=== PATIENT | male | born 1990 | race Caucasian/White ===

== ENCOUNTER 2017-10-25 13:00 | Inpatient (IN) | payer BC, OTHER ==
[~2017-10-25] VITALS: Ht 175.3 cm; Wt 90.7 kg
--- NOTE | 2017-10-25 16:00 | NUR ---
PRE-ASSESSMENT: Pre-Assessment done at intake office, client is A/O x4, he presents with anxious mood. Client is wearing clean clothes, he appears nourished. Client avoids eye contact. Rapid speech, he has difficulty staying still, T 98.43, RR 18, HR 81, BP 143/83, spO2 @ 96% on RA, Pain 0/10. He is fully ambulatory. He denies any allergies; he denies any withdrawal-induced seizure. PMH: GERD. Past Surgical hx: R hand surgery (2008). Client denies any suicidal/homicidal ideation at this time and reports no hx of of SI/HI. Medications taken at home Omeprazole 20mg PO daily Substance history First time used oxycodone was at 17 y/o, but started using daily for the past 2 years. Now he is using oxycodone 400-500mg PO, snorted daily for the past 4 weeks, last amount used 300mg PO & snorted 10/25/17 @ 1100 He consumes alcoholic beverages, alprazolam, and ecstasy occasionally, client is a poor historian on these substances, insisting he does not use them daily and amount is really not much. Protocol regarding vitals Q4H, UDS, blood work, and controlled substances discuss with client, he verbalized understanding. Psych: Jayjay Villatoro. Client reports no PCP
[2017-10-25] MEDS ORDERED: OMEP20CA10 PO (16:31)
--- NOTE | 2017-10-25 16:46 | NUR ---
Admissions Note 27 year old male admitted to [facility] for withdrawal from oxycodone. Client stated, "I relapse 4 weeks ago and I need to get a hold of my life." Client is oriented to unit, educated about protocols and how to work TV and call light in his room. Weight: 200 pounds. Height: 5'9" CIWA: 3 Client appears anxious, he has dry, intact skin. Bilateral lung clear on auscultation, abdomen soft, non-tender, no edema noted. Client appears moderate intoxicated upon assessment. Client has steady gait. Client has NKDA, regular diet, full code ordered. Client denies any history of seizures. LBM was 10/25/17, medium/brown/formed. He declines PNA vaccine, stating, "I don't want to feel worst with the side effects." He gives verbal consent for HIV. Client reports living with his girlfriend. He reports no prior treatment. His longest period of sobriety is for 2 months on Jul-Aug of this year. Client stated, the reason why he relapse, "I was stressed out at work, my job is very demanding and I need to be on my best mentally and physically, truth is I can't do that without using oxycodone." Client reports the following symptoms when attempting to be sober, "I feel stressed out, irritable, my body hurts and it feel on fire, I'm not sure how to describe, but it is a bad feeling, oh and I know I would have trouble falling asleep." When asked client how this treatment will be different he stated, "This is my first treatment, and I'm hoping to do my best." Dr Boyce assessed client. Urine was not collected. All safety measures instituted. [place] precaution. Call light within reach. Will continue to monitor.
[2017-10-25] MEDS ORDERED: LOPE1TAB46 PO (17:25)
[2017-10-25] MEDS ORDERED: [UNRECOGNIZED DRUG - OTHER] (17:27)
[2017-10-25] MEDS ORDERED: CLONIDINE HCL 0.1 MG TABLET PO PRN (18:15)
[2017-10-25] MEDS ORDERED: DICYCLOMINE HCL 20 MG TABLET PO PRN (18:15)
[2017-10-25] MEDS ORDERED: ACETAMINOPHEN 325 MG TABLET PO PRN (18:15)
[2017-10-25] MEDS ORDERED: METHOCARBAMOL 750 MG TABLET PO PRN (18:15)
[2017-10-25] MEDS ORDERED: ONDANSETRON 4 MG/2 ML VIAL IM PRN (18:15)
[2017-10-25] MEDS ORDERED: MAGNESIUM HYDROXIDE 30 ML LIQUID UDC PO PRN (18:15)
[2017-10-25] MEDS ORDERED: LOPERAMIDE HCL 2 MG CAPSULE PO PRN ×2 (18:15)
[2017-10-25] MEDS ORDERED: ONDANSETRON ODT 4 MG TAB.RAPDIS SL PRN (18:15)
[2017-10-25] MEDS ORDERED: MAG HYDROX/AL HYDROX/SIMETH 30 ML LIQUID UDC PO PRN (18:15)
[2017-10-25] MEDS ORDERED: LORAZEPAM 1 MG TABLET PO PRN (18:15)
[2017-10-25] MEDS ORDERED: IBUPROFEN 600 MG TABLET PO PRN (18:15)
[2017-10-25] MEDS ORDERED: MIRALAX 17 GM POWD.PACK PO PRN (18:15)
[2017-10-25] MEDS ORDERED: HYDROXYZINE PAMOATE 25 MG CAPSULE PO PRN (18:15)
[2017-10-25 18:43] LABS: BASOPHILS % (AUTO) 0.4 % (0.0-2.0); EOSINOPHILS # (AUTO) 0.6 K/uL (0.0-0.7); EOSINOPHILS % (AUTO) 6.1 % (0.0-7.0); HEMATOCRIT 40.6 % (36.7-47.1); HEMOGLOBIN 14.1 g/dL (12.5-16.3); LYMPHOCYTES # (AUTO) 1.9 K/uL (20.0-40.0); LYMPHOCYTES % (AUTO) 21.3 % (20.5-51.5); MEAN CORPUSCULAR HEMOGLOBIN 31.4 uug (23.8-33.4); MEAN CORPUSCULAR HGB CONC 35 g/dL (32.5-36.3); MEAN CORPUSCULAR VOLUME 90.7 fL (73.0-96.2); MONOCYTES # (AUTO) 0.6 K/uL (2.0-10.0); MONOCYTES % (AUTO) 6.5 % (0.0-11.0); NEUTROPHILS % (AUTO) 65.7 % (38.5-71.5); PLATELET COUNT (AUTO) 261 K/uL (152-348); RED BLOOD CELL COUNT(AUTO) 4.47 MIL/uL (4.06-5.63); WHITE BLOOD COUNT (AUTO) 9.1 K/uL (3.6-10.2)
[2017-10-25 18:43] LABS: *AMPHETAMINE, URINE NEGATIVE (NEGATIVE); *BARBITURATE, URINE NEGATIVE (NEGATIVE); *CANNABINOID, URINE NEGATIVE (NEGATIVE); *COCCAINE, URINE NEGATIVE (NEGATIVE); *OPIATE, URINE POSITIVE (NEGATIVE); *PHENCYCLIDINE SCREEN,URINE NEGATIVE (NEGATIVE)
[2017-10-25 18:58] LABS: ALANINE AMINOTRANSFERASE 36 U/L (16-63); ALKALINE PHOSPHATASE 88 U/L (50-136); ASPARTATE AMINOTRANSFERASE 35 U/L (15-37); BILIRUBIN,TOTAL 0.4 mg/dL (0.2-1.0); CARBON DIOXIDE 29 mmol/L (21-32); CHLORIDE 103 mmol/L (98-107); CREATININE 1.1 mg/dL (0.6-1.3); GLUCOSE 69 mg/dL (74-106); MAGNESIUM 2.1 mg/dL (1.8-2.4); POTASSIUM 3.9 mmol/L (3.5-5.1); TOTAL PROTEIN, SERUM 7.5 g/dL (6.4-8.2); UREA NITROGEN, BLOOD 18 mg/dL (7-18)
--- NOTE | 2017-10-25 19:15 | NUR ---
END OF SHIFT Endorse client to incoming nurse, client is in room, a/o x 4. Client presents with anxiety, he denies any symptoms of withdrawal at this time, but wants to know what medications he can get now. Educated client on precipitated withdrawal symptoms, reinforcement is needed. 1200mL PO fluid intake, void x 1. Call light within reach.
--- NOTE | 2017-10-25 19:15 | NUR ---
Start of Shift Note: Patient is a 27 y.o male admitted today for medically supervised withdrawal from Opiates. Patient is alert & oriented x4. Patient presented with a blunt affect, has anxious/irritable mood, appears with a flushed face, reports chills, stuffy nose & 3/10 generalized body aches. Pt placed on a 5-day Subutex to be started tomorrow. No PRN medications received during day shift. Last COWS 3. Encourage pt to increase fluids as tolerated. Educated patient of current plan of care for the night and medication regimen. Safety precaution in place. Bed locked in lowest position. Both side rails up. Call light within pt's reach. Will continue to monitor patient.
[2017-10-25 19:35] LABS: ETHANOL < 3 MG/DL (0-0)
[2017-10-25 20:00] VITALS: BP 105/68
[2017-10-25] MEDS: diphenhydrAMINE 50 MG CAPSULE PO PRN (20:48)
--- NOTE | 2017-10-25 20:48 | NUR ---
PRN Ativan & Benadryl Pt noted with increase restlessness, anxiety & agitation, he reports chills, generalized body aches, stomach cramps & stuffy nose. PRN Ativan 2mg for anxiety & agitation & Benadryl for sleep administered as ordered. Will monitor for effectiveness of medication.
[2017-10-25] MEDS ORDERED: BUPRENORPHINE HCL 2 MG TAB.SUBL SL PRN (21:00)
--- NOTE | 2017-10-25 21:48 | NUR ---
PRN Reassessment Patient in bed and verbalized decreased in anxiety & agitation. PRN medication effective in relieving some symptoms of withdrawal. Pt in bed and appears comfortable. Safety measures in place. Will continue to monitor patient.
[2017-10-26] VITALS (7 sets, daily range): BP systolic 102–147; BP diastolic 47–80
--- NOTE | 2017-10-26 07:07 | NUR ---
End of Shift Note: Patient is a 27 y.o male admitted for medically supervised withdrawal from Opiates. Patient is alert & oriented x4. Patient presented with a blunt affect, anxiety, agitation, chills, stuffy nose & generalized body aches. Pt will be started on a Subutex taper today. Pt received PRN Ativan 2mg for anxiety & agitation & Benadryl for slee. Medications were effective. Last COWS 7. Continue to closely monitor pt for s/s of withdrawal. Vitals were noted WNL. Pt was encouraged to increased fluid intake as tolerated. Pt slept for a total of 8 hours. Fluid intake: 500 ml, Voided 1x with no bowel movement All needs attended & met. Safety measures in place. Will endorse pt to day shift nurse.
--- NOTE | 2017-10-26 07:50 | NUR ---
START OF SHIFT: RECEIVED PT A/O X 4 LAYING IN BED. HIS LEGS ARE FIDGETING AND HIS SKIN IS MOIST WITH SWEAT AROUND HAIRLINE. PILOERECTION TO ARMS NOTED. PUPILS MODERATELY DILATED. HE C/O BODY ACHES,CHILLS,SWEATS,ANXIETY,RESTLESSNESS,RUNNY NOSE,WATERY EYES AND YAWNS. COWS 19 PRN SUBUTEX 4MG SL ADMINISTERED TO MANAGE S/S OF W/D. ENCOURAGED PT TO INCREASE FLUID INTAKE AFTER MEDICINE DISSOLVES. WILL CONTINUE TO MONITOR AND MANAGE S/S OF W/D.
--- NOTE | 2017-10-26 08:20 | NUR ---
PRN SUBUTEX EFFECTIVE. COWS NOW 13. WILL CONTINUE TO MONITOR AND MANAGE S/S OF W/D.
[2017-10-26] MEDS ORDERED: TUBERCULIN,PURIF.PROT.DERIV. 5 TU/0.1 ML TEST ID ONE (09:00)
[2017-10-26] MEDS: BUPRENORPHINE HCL 2 MG TAB.SUBL SL SCH ×3 (10:00→22:01)
[2017-10-26] MEDS: OMEPRAZOLE 20MG PO PRN (10:11)
--- NOTE | 2017-10-26 18:30 | NUR ---
END OF SHIFT: PT STARTED SUBUTEX TAPER THIS AM TO MANAGE S/S OF W/D WHICH INCLUDE SWEATS,CHILLS,RESTLESSNESS,BODY ACHES,RUNNY NOSE AND ANXIETY. PRN SUBUTEX GIVEN EARLY THIS AM FOR COWS 19 AND EFFECTIVE. PT'S TOLERATING SUBUTEX WELL. LAST COWS 11. HE ATTENDED GROUP AND INTERACTED WITH PEERS. PT WAS COMPLIANT WITH INCREASED FLUIDS. WILL PASS SHIFT REPORT TO ONCOMING TO NIGHT NURSE.
--- NOTE | 2017-10-26 19:15 | NUR ---
Start of Shift Note: Patient is a 27 y.o male admitted today for medically supervised withdrawal from Opiates. Patient is alert & oriented x4. Patient is ambulatory with a steady gait. Patient presented with a flat affect, has anxious/irritable mood & restlessness. Pt presented with a flushed face, reports chills, moist/clammy skin, constantly stuffy nose, 3/10 generalized body aches & abdominal cramps. Pt started on a 5-day Subutex today and tolerating well with no adverse reactions noted. PRN Subutex was administered during day shift. Last . Encourage pt to increase fluids as tolerated. Educated patient of current plan of care for the night and medication regimen. Safety precaution in place. Bed locked in lowest position. Both side rails up. Call light within pt's reach. Will continue to monitor patient.
[2017-10-26] MEDS ORDERED: LORAZEPAM 1 MG TABLET PO ONE (19:30)
[2017-10-26] MEDS ORDERED: BUPRENORPHINE HCL 2 MG TAB.SUBL SL ONE (19:30)
--- NOTE | 2017-10-26 19:44 | NUR ---
Patient presented with anxiety, agitation, chills, 3/10 body aches, stomach cramps & mild headache. COWS 8 CIWA 10. New orders to give one time Subutex 2mg and Ativan 1mg. Orders noted and carried out. Will continue to monitor patient.
--- NOTE | 2017-10-26 20:44 | NUR ---
Patient noted with decrease in anxiety & agitation at this time. Patient noted ambulating in the hallway, no distress noted. no facial grimacing noted. Safety measures in place. Will continue to monitor patient.
[2017-10-26] MEDS ORDERED: LORAZEPAM 1 MG TABLET PO SCH (21:00)
[2017-10-26] MEDS: CLONIDINE HCL 0.1 MG TABLET PO SCH (22:00)
[2017-10-26] MEDS: GABAPENTIN 300 MG CAPSULE PO SCH (22:00)
--- NOTE | 2017-10-27 07:08 | NUR ---
End of Shift Note: Patient monitored closely during shift. Patient remains alert & oriented x4. Patient presented with a flat affect, anxiety, agitation, reports chills, moist/clammy skin, constantly stuffy nose, 3/10 generalized body aches & abdominal cramps. Pt continues on a Subutex taper and tolerated well. Initial COWS 11. Pt received additional doses of Subutex and Ativan last night and were effective. Last COWS 8. No PRN medications received during my shift. Continue to closely monitor pt for s/s of withdrawal. Vitals were noted WNL. Patient encouraged participation in therapy sessions. Non pharmacological intervention utilized. Encourage pt to increase fluid intake as tolerated. Pt slept for a total of 5 hours. Fluid intake: 500 ml, Voided 1x with no bowel movement. All needs attended & met. Safety measures in place. Will endorse pt to day shift nurse.
[2017-10-27 08:00] VITALS: BP 105/63
--- NOTE | 2017-10-27 08:05 | NUR ---
START OF SHIFT: RECEIVED PT A/O X 4 HE C/O BODY ACHES,SWEATS,ANXIETY,STUFFY NOSE AND RESTLESSNESS. HE STATES HE SLEPT WELL LAST NIGHT. COWS 9 ENCOURAGED INCREASED FLUIDS TO ASSIST IN FACILITATING DETOX PROCESS. ENCOURAGED GROUP ATTENDANCE TO IMPROVE COPING SKILLS AND PREVENT RELAPSE. WILL CONTINUE TO MONITOR AND MANAGE S/S OF W/D.
[2017-10-27] MEDS: OMEPRAZOLE 20MG PO PRN (08:47)
[2017-10-27] MEDS: CLONIDINE HCL 0.1 MG TABLET PO SCH ×3 (08:49→21:18)
[2017-10-27] MEDS: GABAPENTIN 300 MG CAPSULE PO SCH ×3 (08:49→21:19)
[2017-10-27] MEDS ORDERED: BUPRENORPHINE HCL 2 MG TAB.SUBL SL SCH (09:00)
[2017-10-27 12:00] VITALS: BP 100/62
[2017-10-27] MEDS: BUPRENORPHINE HCL 2 MG TAB.SUBL SL SCH ×2 (14:04→21:19)
[2017-10-27 16:00] VITALS: BP 129/64
--- NOTE | 2017-10-27 18:58 | NUR ---
END OF SHIFT: PT CONTINUES ON SUBUTEX TAPER TO MANAGE S/S OF W/D WHICH INCLUDE SWEATS,RESTLESSNESS,BODY ACHES,STUFFY NOSE AND ANXIETY. HE STATES THE SUBUTEX IS EFFECTIVE. LAST COWS 7. HE ATTENDED GROUPS AND INTERACTED WITH PEERS. HE WAS ALSO COMPLIANT WITH INCREASED FLUIDS. [facility].
--- NOTE | 2017-10-27 19:15 | NUR ---
START OF SHIFT Patient is a 27-year-old male admitted on 10/25/17 for opiate withdrawal. Patient is currently on a 5-day Subutex taper, tolerating well. Patients last COWS was 7 per day shift. Patient received PRN Prilosec this morning for symptoms of GERD; noted as effective. Upon assessment, patient is alert and oriented x4, complaining of a runny/stuffy nose. Patient appears diaphoretic and disheveled. Patient complains of legs aching bilaterally, 5/10. Patient is on fall precautions, no history of seizures. Safety measures in place, side rails up x2, bed locked in low position, call light within reach. Will continue to monitor.
[2017-10-27 20:00] VITALS: BP 125/69
[2017-10-27] MEDS: BACLOFEN 10 MG TABLET PO SCH (21:18)
[2017-10-27] MEDS: diphenhydrAMINE 50 MG CAPSULE PO PRN (21:19)
--- NOTE | 2017-10-27 21:19 | NUR ---
PRN BENADRYL Patient reports difficulty sleeping. PRN Benadryl 50mg given PO. Safety measures in place, call light within reach. Will monitor for effectiveness.
--- NOTE | 2017-10-27 22:19 | NUR ---
PRN BENADRYL REASSESSMENT Patient reports feeling sleepy and states "I'll go to bed soon." PRN Benadryl effective. Safety measures in place, side rails up x2, bed locked in low position, call light within reach. Will continue to monitor.
--- NOTE | 2017-10-28 | NUR ---
VITALS REFUSED, COWS DEFERRED Patient refused midnight vitals. COWS deferred at this time due to patient sleeping; to be assessed and scored while patient is awake. Respirations even and unlabored, 16/min. Safety measures in place, side rails up x2, bed locked in low position, call light within reach. Will continue to monitor.
--- NOTE | 2017-10-28 04:00 | NUR ---
VITALS REFUSED, COWS DEFERRED Patient refused 4AM vitals. COWS deferred at this time due to patient sleeping. Respirations even and unlabored, 16/min. Safety measures in place, side rails up x2, bed locked in low position, call light within reach. Will continue to monitor.
--- NOTE | 2017-10-28 07:00 | NUR ---
END OF SHIFT Patient is a 27-year-old male admitted on 10/25/17 for opiate withdrawal. Patient is currently on a 5-day Subutex taper, tolerating well. Patients last COWS was 5. Patient received PRN Benadryl 50mg PO; noted as effective. Patient has complained of stuffy nose, MD notified, will endorse to day shift to follow-up. Patient slept for 6 hours, total intake of 1,355mL, void x2, stool x0. Patient is on fall precautions, no history of seizures. Safety measures in place, side rails up x2, bed locked in low position, call light within reach. Will endorse to day shift.
--- NOTE | 2017-10-28 07:30 | NUR ---
START OF SHIFT Received report from night auditor nurse. Pt is lying in bed resting and easily arousable. He is a 27 yo male admitted to [facility] on 10/25 for opioid withdrawal. Pt is A&O and ambulatory. He continues on a 5 day Subutex taper . Pt has moist skin and facial flushing. He slept for 6 hours last night after receiving PRN Benadryl. Safety measures in place.
[2017-10-28 08:00] VITALS: BP 123/60
[2017-10-28] MEDS: CLONIDINE HCL 0.1 MG TABLET PO SCH ×3 (09:34→20:47)
[2017-10-28] MEDS: BUPRENORPHINE HCL 2 MG TAB.SUBL SL SCH ×3 (09:34→20:48)
[2017-10-28] MEDS: GABAPENTIN 300 MG CAPSULE PO SCH ×3 (09:34→20:47)
[2017-10-28] MEDS: BACLOFEN 10 MG TABLET PO SCH ×3 (09:34→20:46)
[2017-10-28] MEDS: OMEPRAZOLE 20MG PO PRN (09:34)
--- NOTE | 2017-10-28 09:35 | NUR ---
PRN Omeprazole Pt reports dyspepsia. PRN Omeprazole administered.
--- NOTE | 2017-10-28 10:35 | NUR ---
PRN Omeprazole reassessment PRN Omeprazole effective. Pt denies GI discomfort.
[2017-10-28] MEDS ORDERED: KETOROLAC TROMETHAMINE 30 MG INJ IM PRN (10:45)
[2017-10-28 12:00] VITALS: BP 122/66
--- NOTE | 2017-10-28 13:55 | NUR ---
Client was prompted to attend group counseling sessions and client agreed to do so.
[2017-10-28] MEDS: DICYCLOMINE HCL 20 MG TABLET PO SCH ×2 (14:17→20:47)
--- NOTE | 2017-10-28 15:05 | NUR ---
RECEIVED CARE Received care from primary nurse, all pertinent information discussed.
[2017-10-28 16:00] VITALS: BP 127/77
[2017-10-28 17:08] LABS: HEPATITIS B SURFACE AG Negative (Negative)
--- NOTE | 2017-10-28 19:11 | NUR ---
END OF SHIFT NOTE Gave report to night nurse, Patient admitted for Oxycodone withdrawal and cont with Subutex taper tolerating well. During shift patient received PRN from his primary nurse omeprazole noted to be effective. Vital signs WNL. Patient remain compliant with diet. Patient attended groups and activities. Patient consumed 100% of his meals. Patient is compliant with treatment plan and medications. All safety measures in place. Patient endorsed to night nurse in stable condition.
[2017-10-28 20:00] VITALS: BP 126/75
--- NOTE | 2017-10-28 20:00 | NUR ---
START OF SHIFT NOTE RECEIVED REPORT FROM DAY SHIFT NURSE. PATIENT IS A 27 YEAR OLD MALE ADMITTED FOR OPIATE WITHDRAWAL. PATIENT IS 3RD DAY OF HIS 5 DAY SUBUTEX TAPER. PATIENT WAS GIVEN PRN OMEPRAZOLE . LAST COWS 5 . PATIENT PRESENTS WITH FLAT AFFECT, GUARDED, RESTRICTED, BLUNTED, ANXIETY, IRRITABLE, ABDOMINAL CRAMPING, FLUSHED FACE , SWEATING, CHILLS AND INSOMNIA. PATIENTS ROOM DIRTY , CLOTHES THROWN ON FLOOR AND GARBAGE AROUND ROOM. ENCOURAGED FLUIDS. SAFETY MEASURES IN PLACE. CALL LIGHT IN REACH. WILL CONTINUE TO MONITOR.
[2017-10-28] MEDS ORDERED: LORAZEPAM 1 MG TABLET PO SCH (21:00)
[2017-10-28] MEDS: diphenhydrAMINE 50 MG CAPSULE PO PRN (22:09)
--- NOTE | 2017-10-28 22:09 | NUR ---
PRN BENADRYL ADMINISTRATION PATIENT REQUESTS FOR SLEEP AID. WILL MONITOR FOR EFFECTIVENESS
--- NOTE | 2017-10-29 | NUR ---
PRN BENADRYL/COWS DEFERRED PATIENT SLEEPING. RESPIRATION EVEN AND UNLABORED. VS REFUSED. SAFETY MEASURES IN PLACE. CALL LIGHT IN REACH. WILL CONTINUE TO MONITOR.
--- NOTE | 2017-10-29 04:00 | NUR ---
COWS DEFERRED PATIENT SLEEPING. RESPIRATION EVEN AND UNLABORED. VS REFUSED. SAFETY MEASURES IN PLACE. CALL LIGHT IN REACH. WILL CONTINUE TO MONITOR.
--- NOTE | 2017-10-29 07:11 | NUR ---
END OF SHIFT NOTE PATIENT SLEPT 6 HOURS. FLUID INTAKE 1,547 ML. VOIDED X 5. BM X 2. MONITORED PATIENT THROUGHOUT SHIFT. TAPER AND SCHEDULED MEDICATION GIVEN , TOLERATED WELL AND NO ADVERSE REACTION. PATIENT PRESENTED WITH FLAT AFFECT, GUARDED, RESTRICTED, BLUNTED, ANXIETY, IRRITABLE, ABDOMINAL CRAMPING, FLUSHED FACE , SWEATING, CHILLS AND INSOMNIA BEGINNING OF SHIFT. PRN BENADRYL GIVEN FOR SLEEP AID. SAFETY MEASURES IN PLACE. CALL LIGHT IN REACH. WILL CONTINUE TO MONITOR. LAST COWS 8.
--- NOTE | 2017-10-29 07:20 | NUR ---
START OF SHIFT NOTE Received report from night nurse, 89 year old male admitted for Opioid withdrawal and cont with Subutex taper tolerating well. Per endorsement patient received PRN Benadryl effective per night nurse. Patient received asleep responsive to verbal and tactile stimuli. Breathing normal no SOB noted. Skin intact warm and dry to touch. All safety measures in place. Will cont to monitor.
[2017-10-29 08:00] VITALS: BP 102/60
[2017-10-29] MEDS: DICYCLOMINE HCL 20 MG TABLET PO SCH ×3 (09:14→20:38)
[2017-10-29] MEDS: BUPRENORPHINE HCL 2 MG TAB.SUBL SL SCH ×2 (09:15→20:39)
[2017-10-29] MEDS: BACLOFEN 10 MG TABLET PO SCH ×3 (09:15→20:38)
[2017-10-29] MEDS: GABAPENTIN 300 MG CAPSULE PO SCH ×3 (09:15→20:38)
[2017-10-29] MEDS: CLONIDINE HCL 0.1 MG TABLET PO SCH ×3 (09:16→20:38)
[2017-10-29] MEDS: OMEPRAZOLE 20MG PO PRN ×2 (09:30→19:21)
--- NOTE | 2017-10-29 09:30 | NUR ---
PRN OMEPRAZOLE Patient is c/o of heart burn, PRN Omeprazole administered as ordered.
--- NOTE | 2017-10-29 10:30 | NUR ---
OMEPRAZOLE REASSESSMENT Per patient medication was effective, heart burn decreased.
[2017-10-29 12:00] VITALS: BP 116/59
[2017-10-29 16:00] VITALS: BP 102/68
--- NOTE | 2017-10-29 16:48 | NUR ---
Client was prompted to attend twice daily group counseling sessions and client agreed to do so.
--- NOTE | 2017-10-29 19:18 | NUR ---
END OF SHIFT NOTE Gave report to night nurse, patient admitted for Oxycodone withdrawal and cont with Subutex taper tolerating well. Patient presented with anxiety, agitation and heart burn. During shift patient received PRN Omeprazole for heart burn noted to be effective. Vital signs WNL. Patient attended groups and activities. Patient consumed 100% of his meals. Patient is compliant with treatment plan and medications. All safety measures in place. Patient endorsed to night nurse in stable condition.
[2017-10-29 20:00] VITALS: BP 113/63
--- NOTE | 2017-10-29 20:00 | NUR ---
START OF SHIFT NOTE RECEIVED REPORT FROM DAY SHIFT NURSE. PATIENT IS A 27 YEAR OLD MALE ADMITTED FOR OXYCODONE WITHDRAWAL. PATIENT IS ON 4TH DAY OF HIS 5 DAY SUBUTEX TAPER. PATIENT WAS GIVEN PRN OMEPRAZOLE FOR HEARTBURN. LAST COWS 7. PATIENT PRESENTS WITH ANXIETY, RESTLESS, SWEATING, PILOERECTION OF SKIN, TREMORS FELT AND STUFFY NOSE. SAFETY MEASURES IN PLACE. CALL LIGHT IN REACH. WILL CONTINUE TO MONITOR
[2017-10-29] MEDS: diphenhydrAMINE 50 MG CAPSULE PO PRN (23:29)
--- NOTE | 2017-10-29 23:29 | NUR ---
PRN BENADRYL ADMINISTRATION PATIENT REQUESTS FOR SLEEP AID. WILL MONITOR FOR EFFECTIVENESS
--- NOTE | 2017-10-30 | NUR ---
COWS AND CIWA DEFERRED PATIENT IN BED WITH EYES CLOSED. RESPIRATION EVEN AND UNLABORED. VS REFUSED. WILL CONTINUE TO MONITOR Addendum: 10/30/17 at 0651 by PETER TORIBIO LVN ERROR: PATIENT IS NOT ON CIWA ASSESSMENT Addendum: 10/30/17 at 0652 by PETER TORIBIO LVN BENADRYL RE-ASSESSED AT THIS TIME - EFFECTIVE
--- NOTE | 2017-10-30 04:00 | NUR ---
COWS DEFERRED PATIENT IN BED WITH EYES CLOSED. RESPIRATION EVEN AND UNLABORED. VS REFUSED. WILL CONTINUE TO MONITOR
--- NOTE | 2017-10-30 07:11 | NUR ---
END OF SHIFT NOTE PATIENT SLEPT 6 HOURS. FLUID INTAKE 500 ML. VOIDED X 1. NO BM. MONITORED PATIENT THROUGHOUT SHIFT. PATIENT PRESENTED WITH ANXIETY, RESTLESS, SWEATING, PILOERECTION OF SKIN, TREMORS FELT AND STUFFY NOSE BEGINNING SHIFT. PATIENT CONTINUE ON SUBUTEX TAPER, TOLERATED WELL AND NO ADVERSE REACTION. PATIENT ATTENDED GROUPS. PATIENT REQUESTED FOR SLEEP AID. PRN BENADRYL GIVEN AT 2329. SAFETY MEASURES IN PLACE. CALL LIGHT IN REACH. WILL CONTINUE TO MONITOR. LAST COWS 8.
--- NOTE | 2017-10-30 07:30 | NUR ---
Start of Shift Note Pt. is a 27 y/o male admitted for the medically supervised withdrawal of oxycodone. Pt. is on a 5 day subutex taper per MD order. Received pt. in room laying in bed with eyes closed. No signs or symptoms of S.O.B noted. Pt. arousable to name and touch. Pt.s room is cluttered with personal belongings. Endorsed pt.s behavior during PM shift was restless with diaphoresis and anxiety. PRN Benadryl was given during pm shift for insomnia. Last COWs was 8. Will attend to pt.s needs. Will encourage pt. to maintain a clean and hygienic personal space. Will provide pt. with a safe and structured environment. Will continue to monitor pt.s behavior for safety.
[2017-10-30] MEDS: CLONIDINE HCL 0.1 MG TABLET PO SCH ×3 (08:53→20:19)
[2017-10-30] MEDS: GABAPENTIN 300 MG CAPSULE PO SCH ×3 (08:53→20:19)
[2017-10-30] MEDS: DICYCLOMINE HCL 20 MG TABLET PO SCH ×3 (08:53→20:19)
[2017-10-30] MEDS: BACLOFEN 10 MG TABLET PO SCH ×3 (08:53→20:19)
[2017-10-30 08:58] VITALS: BP 115/66
[2017-10-30] MEDS ORDERED: BUPRENORPHINE HCL 2 MG TAB.SUBL SL SCH (09:00)
[2017-10-30] MEDS: OMEPRAZOLE 20MG PO PRN (09:26)
--- NOTE | 2017-10-30 09:37 | NUR ---
PRN Medication Pt. given PRN Omeprazole for complaints of dyspepsia. Pt. states "I've been taking this medication every morning for the past 10 years.' Will continue to monitor pt. for medication effectiveness.
--- NOTE | 2017-10-30 10:37 | NUR ---
PRN Re-Assessment Pt. reports medication working as intended. Will continue to monitor pt.'s behavior for safety.
[2017-10-30] MEDS ORDERED: HYDR-3895 PO (11:26)
[2017-10-30] MEDS ORDERED: GABA-534 PO ×2 (11:26)
[2017-10-30] MEDS ORDERED: DICY20TA28 PO (11:26)
[2017-10-30] MEDS ORDERED: IBUP-1955 PO (11:26)
[2017-10-30] MEDS ORDERED: DIPH50CA37 PO (11:26)
[2017-10-30] MEDS ORDERED: CLON0.1T14 PO (11:26)
[2017-10-30] MEDS ORDERED: METH-406 PO (11:26)
[2017-10-30 12:30] VITALS: BP 115/72
[2017-10-30 16:00] VITALS: BP 122/71
--- NOTE | 2017-10-30 19:00 | NUR ---
Start of Shift Patient Received. Patient is in the activities room participating in a group meeting. Per endorsement, patient has completed a 5 day Subutex taper and is set for discharge tomorrow to [facility]. Patient has been noted to verbalize increase anxiety and restlessness but routine medications have been helpful with minimizing symptoms. No PRN medications administered. Last noted COWS 7. All needs attended to promptly. Will continue plan of care as ordered.
--- NOTE | 2017-10-30 19:15 | NUR ---
End of Shift Note Pt. is a 27 y/o male admitted for the medically supervised withdrawal of oxycodone. Pt. is on a 5 day subutex taper per MD order. Pt. completed the last dose of his taper today. No signs or symptoms of S.O.B noted. Pt. has been calm and cooperative throughout shift. Pt. has verbalized feelings of anxiety throughout the shift but states its nothing I cant handle Pt.s room is cluttered with personal belongings. No PRNs given during this shift. Last COWs was 7. Encouraged pt. to maintain a clean and hygienic personal space. Will provide pt. with a safe and structured environment. Pt. had 2000 mls of PO intake, voided x 4 and had 1 BM Will endorse pt.s care to oncoming shift.
[2017-10-30 20:10] VITALS: BP 111/63
[2017-10-30] MEDS: diphenhydrAMINE 50 MG CAPSULE PO PRN (22:26)
--- NOTE | 2017-10-30 22:27 | NUR ---
PRN Medication Administration Patient is noted verbalizing increased anxiety and inability of falling asleep. PRN Vistaril and Benadryl administered. Will continue to monitor.
--- NOTE | 2017-10-30 23:30 | NUR ---
PRN Medication Reassessment Patient is noted in bed sleeping. breathing even and non labored. Patient was given PRN Benadryl and Vistaril for increased anxiety and inability of falling asleep with medication noted to be effective. Will continue to monitor.
--- NOTE | 2017-10-31 00:20 | NUR ---
Vitals Refused Patient is noted in bed sleeping. Breathing even and non labored. Vitals refused. Respirations noted to be 16. COWS not able to be completed as per order. Will continue to monitor. Addendum: 10/31/17 at 0127 by ALLISON MOMIN LVN Amended: Links added.
--- NOTE | 2017-10-31 04:10 | NUR ---
Vitals Patient is noted in bed sleeping. breathing even and non labored. patient refused vitals. respirations noted to be 16. COWS not able to be completed as per order. Will continue to monitor. Addendum: 10/31/17 at 0551 by ALLISON MOMIN LVN Amended: Links added.
--- NOTE | 2017-10-31 07:06 | NUR ---
End of Shift Patient is in bed sleeping. Breathing even and non labored. Patient completed a 5 day Subutex taper and is set for discharge today 10/31/17 to [facility]. Patient verbalized increased anxiety and restless legs and was given his routine medications with medications noted to be effective. Patient received PRN Vistaril and Benadryl for increased anxiety and inability of falling asleep with medications noted to be effective. Patient noted to sleep a total of 6 hours. Last noted COWS 8. All needs attended to promptly. Will endorse to continue plan of care as ordered.
--- NOTE | 2017-10-31 07:41 | NUR ---
START OF SHIFT Rcvd endorse from ongoing nurse, client is in room, a/o x 4, he presents with depressed mood, flat affect. He reports feeling anxious, restless legs, and fatigue. Client is schedule for discharge this am to [facility] for continuity of his treatment. Client completed 5 day Subutex taper. Last COWS 8 @ 1999. PRN Vistaril 50mg for anxiety, Benadryl 50mg for inability to sleep, he slept 6 hrs. [place] precaution rendered. Call light within reach.
[2017-10-31 08:08] VITALS: BP 118/71
[2017-10-31 08:23] VITALS: BP 118/71
[2017-10-31] MEDS: GABAPENTIN 300 MG CAPSULE PO SCH (08:23)
[2017-10-31] MEDS: DICYCLOMINE HCL 20 MG TABLET PO SCH (08:23)
[2017-10-31] MEDS: CLONIDINE HCL 0.1 MG TABLET PO SCH (08:23)
[2017-10-31] MEDS: BACLOFEN 10 MG TABLET PO SCH (08:23)
[2017-10-31] MEDS: OMEPRAZOLE 20MG PO PRN (08:26)
--- NOTE | 2017-10-31 08:26 | NUR ---
PRN Omeprazole 20mg PO administered for dyspepsia. Call light within reach.
--- NOTE | 2017-10-31 09:26 | NUR ---
Reassess PRN Omeprazole 20mg, client reports relief from dyspepsia.
--- NOTE | 2017-10-31 09:33 | NUR ---
Discharge Note Client discharged in stable condition with all valuable, belongings, prescription, and home meds. Client denies SI/HI. To [facility] via private car.
== END 2017-10-31 09:33 | DRG 895 ==
LOC: SRC 15:38
PROVIDERS: ADMIT Internal Medicine; ATTEND Internal Medicine
PROC: HZ2ZZZZ Detoxification Services for Substance Abuse Treatment (ICD-10-PCS; principal; 2017-10-25)
PROC: HZ41ZZZ Group Counseling for Substance Abuse Treatment, Behavioral (ICD-10-PCS; 2017-10-26)
PROC: HZ31ZZZ Individual Counseling for Substance Abuse Treatment, Behavioral (ICD-10-PCS; 2017-10-28)
DX: F11.23 Opioid dependence with withdrawal (principal); I15.9 Secondary hypertension, unspecified; E16.2 Hypoglycemia, unspecified; F10.10 Alcohol abuse, uncomplicated; Y90.9 Presence of alcohol in blood, level not specified; F13.10 Sedative, hypnotic or anxiolytic abuse, uncomplicated; F16.10 Hallucinogen abuse, uncomplicated; F14.10 Cocaine abuse, uncomplicated; Z81.1 Family history of alcohol abuse and dependence; Z81.3 Family history of other psychoactive substance abuse and dependence; Z80.9 Family history of malignant neoplasm, unspecified; K21.9 Gastro-esophageal reflux disease without esophagitis; G47.00 Insomnia, unspecified; Z72.0 Tobacco use
CPT/HCPCS: 36415; 70030-TC; 80307; 80361; 83735; 85025; 86580; 86592; 86705; 86803; 87340; 87806; A4663; G0480; Q0163